=== PATIENT | male | born 1985 | race Caucasian/White ===

== ENCOUNTER 2024-09-04 13:18 | Emergency (ER) | payer OTHER, SELFPAY ==
[2024-09-04 13:30] VITALS: BP 164/87; PULSE 117; RESP 16; TEMP 36.4; O2SAT 97
--- NOTE | 2024-09-04 13:52 | ED.URI ---
HPI - URI/Sore Throat General Chief Complaint: Upper Respiratory Infection Stated Complaint: Fever/Chills/Body Aches/Nausea Time Seen by Provider: 09/04/24 13:44 Source: patient, RN notes reviewed and old records reviewed Mode of arrival: ambulatory Limitations: no limitations History of Present Illness HPI Narrative: 38 year who presents to [facility] with complaints of 3 day history of cough with congestion, body aches, fevers, chills and sweats, some runny nose and some sore throat. Patient reports that he has not had any ear pain. Patient has been taking OTC cough and cold medications without improvement in his symptoms. Patient reports that he did home COVID yesterday that was negative. MD elicited complaint: fever, cough, sore throat, rhinorrhea, nasal congestion and other (body aches) Onset (ago): day(s) (3) Severity: moderate Able to tolerate fluids by mouth: Yes Treatments prior to arrival: cold medicine and other (cough meds) Related Data Allergies Allergy/AdvReac Type Severity Reaction Status Date / Time No Known Allergies Allergy Verified 09/04/24 13:39 Review of Systems Review of Systems: CONSTITUTIONAL: Reports malaise, chills, sweats, or fever. EYES: Denies visual changes, redness, or discharge. ENT: Reports rhinorrhea, congestion, sinus pain,no otalgia and positive for sore throat. CARDIOVASCULAR: Denies chest pain, palpitations, or edema. RESPIRATORY: Reports dry hacking cough.? Denies any acute dyspnea GASTROINTESTINAL: Denies abdominal pain, nausea, vomiting, diarrhea SKIN: Denies rash or itching. MUSCULOSKELETAL: reports myalgia. NEUROLOGIC: Denies headache. All systems reviewed & are unremarkable except as noted in HPI and below PMFSH Past Medical History Medical History (Updated 09/06/24 @ 18:07 by Gracie Fulton NP) Fracture of right wrist Surgical History Surgical History (Updated 09/06/24 @ 18:07 by Gracie Fulton NP) H/O oral surgery Social History Social History (Updated 09/06/24 @ 18:07 by Gracie Fulton NP) Smoking status: Never smoker Alcohol intake: current Substance use type: does not use Living arrangements: with family Gender identity (if verbalized by the patient): Male Comments At time of signature, agree with nursing past medical, surgical, social and family history. There is no relevant family history pertinent to the presenting complaint Exam Narrative: GENERAL: Well-appearing, well-nourished, and in no acute distress. HEAD: Normocephalic EYES: PERRLA, conjunctivae clear ENT: Nares clear, turbinates edematous and erythematous, clear discharge. Mucous membranes moist. TM pearly davis with dull light reflex bilaterally; no tragal tenderness. Oropharynx erythematous without lesions. Tonsils not enlarged and without exudate, no drooling, no hoarseness, no trismus, uvula midline.post nasal drainage NECK: Supple. No lymphadenopathy CHEST: Clear to auscultation, breath sounds equal. No wheezing, rhonchi, rales, or stridor. No respiratory distress, speaks in full sentences.cough noted SAO2 97% on room air HEART: Regular rate and rhythm. No murmur heard. SKIN: Warm, dry, no rash. NEURO: Alert and oriented x3. PSYCH: Normal mood and affect Course Course Emergency Course: Patient is aware of diagnosis, understands and agrees to treatment plan.? Anticipatory guidance given.? Patient agrees to follow-up as directed and is aware of reasons to seek care at the emergency department. Portions of this record may have been created with voice recognition software Level of Care: Express Care Visit Vital Signs Vital signs: Vital Signs Temperature 36.4 C L 09/04/24 13:30 Pulse Rate 117 H 09/04/24 13:30 Respiratory Rate 16 09/04/24 13:30 Blood Pressure 164/87 H 09/04/24 13:30 Pulse Oximetry 97 09/04/24 13:30 Oxygen Delivery Room Air 09/04/24 13:30 Temperature 36.4 C L 09/04/24 13:30 Pulse Rate 117 H 09/04/24 13:30 Respiratory Rate 16 09/04/24 13:30 Blood Pressure 164/87 H 09/04/24 13:30 Pulse Oximetry 97 09/04/24 13:30 Oxygen Delivery Room Air 09/04/24 13:30 Reviewed MDM - URI/Sore Throat MDM Narrative Medical decision making narrative: Differential diagnosis considered: Hurtado virus, strep pharyngitis, allergic rhinitis, upper respiratory tract infection, sinusitis, rhinosinusitis, nasopharyngitis. viral pharyngitis, otitis media, otitis externa, pneumonia, bronchitis, viral cough syndrome, viral syndrome, and influenza.? Exam findings show no acute concerns or changes; patient is non-toxic appearing and is in no distress.? Patient is appropriate for outpatient treatment and follow-up. Differential Diagnosis Differential diagnosis: Likely upper respiratory infection, sinusitis, viral infection, influenza, pharyngitis and other (acute cough) Medical Records Attestation: I reviewed the patient's medical records. Lab Data Attestation: I reviewed the patient's lab results. Lab results narrative: strep screen negative, culture sent Influenza A negative, Influenza B negative Labs: Lab Results 09/04/24 Range/Units 14:19 POC Influenza A Ag Negative (Negative) POC Influenza B Ag Negative (Negative) POC Grp A Strep Screen Negative (Negative) Critical Care Time Critical Care Time Critical Care Time: No Discharge Plan Discharge Clinical Impression: Cough in adult, URI, acute Patient Disposition: Home, Self-Care Condition: Stable Instructions: Antibiotic Form, Upper Respiratory Infection (ED) Additional Instructions: Increase fluids especially juices and water [id number] cough and cold medicine of your choice for your symptoms Tylenol or ibuprofen for any fever pain Steroids as directed--take with food heat to the face 20-30 minutes 4-6 times a day for pain Salt water gargles, throat lozenges or throat sprays as desired Antibiotic as directed--finished the medication If your symptoms persist, change or worsen significantly before you can contact your personal physician then please, without delay, go to the emergency department for further evaluation. Follow-up with PCP in 7-10 days or sooner if needed Follow up with PCP soon in regards to your blood pressure which is elevated above threshold for referral. Blood pressure above 120/80 may indicate pre-hypertension. 164/87 Patient Language: Citizen Of [place] Prescriptions: New prednisone 20 mg tablet 20 mg PO BID Qty: 10 0RF amoxicillin 500 mg capsule 500 mg PO Q12H Qty: 20 0RF Follow-up/Referrals: PHYSICIAN,PLACEMENT DIRECTOR [Primary Care Provider] - Stand Alone Forms: Work/School Release IP Time of Disposition: 14:21 Quality Haines Coma Scale Eyes: Open Verbal: Oriented and Alert Motor: Follows Commands Haines Coma Total Score: 15
[2024-09-04 14:22] LABS: EDINFLUASCREEN Negative (Negative); EDINFLUBSCREEN Negative (Negative); EDSTREPNEGPOS1 Negative (Negative)
== END 2024-09-04 14:29 | disposition home or self-care (01) ==
PROVIDERS: Emergency Provider Registered Nurse
DX: R05.9 Cough, unspecified (principal); J06.9 Acute upper respiratory infection, unspecified
CPT/HCPCS: 87081; 87804; 87880; 99203; G0463